=== PATIENT | male | born 1975 | race Caucasian/White ===

== ENCOUNTER 2020-03-01 18:09 | Emergency (ER) | payer OTHER ==
--- NOTE | 2020-03-01 19:12 | EDM.PDOC ---
ED HPI GENERAL MEDICAL PROBLEM - General Chief Complaint: Lower Extremity Injury/Pain Stated Complaint: SWOLLEN R LEG Time Seen by Provider: 03/01/20 18:38 Source of Information: Reports: Patient, RN Notes Reviewed History Limitations: Reports: No Limitations - History of Present Illness INITIAL COMMENTS - FREE TEXT/NARRATIVE: Patient is a 44-year-old male who presents to the ED for evaluation of his right lower leg swelling. Patient notes this is been present for about 7 days, and has an open sore, for about the past month. He has been using Neosporin and Band-Aids for wound management. The patient's leg itself has 1-2+ pitting edema, the area is red/purple in color, states he has some pain with walking. He is using Motrin for 100 mg, and 2 tablets of Aleve. Patient is quite obese, he denies any cardiovascular history, however he is going to his primary care provider on March 06, to get a cardiovascular referral as his sister works for a cardiovascular surgeon, and is urged him to do as such. 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 He denies any fevers or chills, cough/shortness of breath, nausea/vomiting/diarrhea. Right Lower Leg Pain Score (Numeric/FACES): 8 - Related Data Allergies Allergy/AdvReac Type Severity Reaction Status Date / Time No Known Allergies Allergy Verified 03/01/20 18:35 Home Meds: Home Meds Doxycycline [Vibramycin] 100 mg PO BID #14 tab 03/01/20 [Rx] Nebivolol [Bystolic] 10 mg PO DAILY 03/01/20 [History] Omeprazole Magnesium [Prilosec Otc] 20 mg PO DAILY 03/01/20 [History] hydroCHLOROthiazide [Hydrochlorothiazide] 25 mg PO DAILY 03/01/20 [History] Past Medical History Cardiovascular History: Reports: High Cholesterol Gastrointestinal History: Reports: GERD Endocrine/Metabolic History: Reports: Obesity/BMI 30+ Social & Family History - Tobacco Use Smoking Status *Q: Never Smoker - Caffeine Use Caffeine Use: Reports: Coffee - Recreational Drug Use Recreational Drug Use: No Review of Systems - Review of Systems Review Of Systems: Comprehensive ROS is negative, except as noted in HPI. ED EXAM, GENERAL - Physical Exam Exam: See Below Exam Limited By: No Limitations General Appearance: Alert, WD/WN, No Apparent Distress Respiratory/Chest: No Respiratory Distress, Lungs Clear, Normal Breath Sounds, No Accessory Muscle Use, Chest Non-Tender Cardiovascular: Normal Peripheral Pulses, Regular Rate, Rhythm, No Murmur Peripheral Pulses: 2+: Dorsalis Pedis (L), Dorsalis Pedis (R) Extremities: Normal Range of Motion, Normal Capillary Refill, Leg Pain (To right lower leg), Increased Warmth (to Right lower leg), Redness (to Right lower leg). No: Carmelita's Sign Neurological: Alert, Oriented, Normal Cognition, No Motor/Sensory Deficits Psychiatric: Normal Affect, Normal Mood Skin Exam: Warm, Dry, Intact, No Rash, Wound/Incision (There is a roughly dime sized ulceration, scabbed over on the right anterior jay. The entire right lower leg, has reddish/purplish coloration, to suggest possible venous stasis or peripheral edema, but there is also no surrounding erythema to suggest cellulitis, the whole area is warm and tender to the touch.) Course - Vital Signs Last Recorded V/S: Last Vital Signs Temp 98.4 F 03/01/20 18:43 Pulse 64 03/01/20 18:43 Resp 20 03/01/20 18:43 BP 137/90 03/01/20 18:43 Pulse Ox 95 03/01/20 18:43 - Re-Assessments/Exams Free Text/Narrative Re-Assessment/Exam: 03/01/20 19:10 The patient presents to the ED for evaluation of his right lower leg swelling and redness. I do believe the patient has a couple issues, he does likely suffer from venous stasis/peripheral edema. He is also exhibiting signs of cellulitis, he will be started on doxycycline, have the leg Derek wrap, he will be given tomorrow off for work, and with recommendations to keep the leg up over the next couple days, and follow-up with his care provider on Thursday for the further allergy referral, patient is okay with this at this time. Departure - Departure Time of Disposition: 19:12 Disposition: Home, Self-Care 01 Condition: Good Clinical Impression: Mild peripheral edema Cellulitis Qualifiers: Site of cellulitis: extremity Site of cellulitis of extremity: lower extremity Laterality: right Qualified Code(s): L03.115 - Cellulitis of right lower limb - Discharge Information *PRESCRIPTION DRUG MONITORING PROGRAM REVIEWED*: No *COPY OF PRESCRIPTION DRUG MONITORING REPORT IN PATIENT MANUEL: No Prescriptions: Doxycycline [Vibramycin] 100 mg PO BID #14 tab Instructions: Cellulitis, Adult, [id number], Peripheral Edema Referrals: Yessica Potts NP [Primary Care Provider] - Forms: ED Department Discharge, ED Return to Work/School Form Additional Instructions: You were evaluated in the ER today regarding your right lower leg swelling/pain/redness. I do believe you are suffering from some peripheral edema, which could be a sign of heart troubles, however you state you have a appointment with your care provider to get a referral for cardiology, please keep this appointment and do as such for further evaluation. There is an area that is concerning for cellulitis, you will be started on an antibiotic for this, 1 tab 2 times a day for the next 7 days. Your leg was wrapped with an Derek wrap, please use this for compression, to help relieve some of the swelling to your lower extremity, please try to elevate your leg as much as possible. Try to keep the level of your toes above your nose to provide the best effect. Please return to the ER at any time if symptoms change or worsen. Sepsis Event Note (ED) - Evaluation Sepsis Screening Result: No Definite Risk - Focused Exam Vital Signs: Vital Signs Temp Pulse Resp BP Pulse Ox 03/01/20 18:43 98.4 F 64 20 137/90 95
== END 2020-03-01 19:58 | disposition home or self-care (01) ==
LOC: JD.ED 18:09
DX: L03.115 Cellulitis of right lower limb (principal); K21.9 Gastro-esophageal reflux disease without esophagitis; E66.9 Obesity, unspecified; Z68.42 Body mass index [BMI] 45.0-49.9, adult; Z79.899 Other long term (current) drug therapy
CPT/HCPCS: 99283